=== PATIENT | male | born 1965 | race Hispanic/Latino ===

== ENCOUNTER 2019-05-04 19:47 | Emergency (ER) | payer SELFPAY ==
[2019-05-04] MEDS ORDERED: methylPREDNISolone SODIUM SUC 125 MG/2 ML VIAL IV ONE (19:58)
[2019-05-04] MEDS ORDERED: diphenhydrAMINE HCL 50 MG/ML VIAL IV ONE (20:00)
[2019-05-04] MEDS ORDERED: FAMOTIDINE IV PREMIX 20 MG in PREMIX BAG 1 BAG IVPB ONE (20:01)
[2019-05-04] MEDS ORDERED: SODIUM CHLORIDE 0.9% 1000ML 1,000 ML IVS ONE (20:03)
[2019-05-04] MEDS ORDERED: FAMOTIDINE IV PREMIX 50 ML IVPB ONE (20:04)
[2019-05-04] MEDS ORDERED: SODIUM CHLORIDE 0.9% (FLUSH) 10 ML SYG IV PRN (20:04)
--- NOTE | 2019-05-04 20:18 | ED.PDOC ---
History of Present Illness - General Chief Complaint: Allergic Reaction Stated Complaint: allergic reaction Time Seen by Provider: 05/04/19 19:57 Source: patient, family Exam Limitations: no limitations - History of Present Illness Initial Comments: PT ATE DINNER. JUST AFTER DINNER, PT NOTICED HIS TONGUE STARTED SWELLING. HIS PERCEIVES HIS FACE IS MORE RED THAN USUAL. IN ER HE MENTIONS HE FEELS ITCHY HIS NOTED HIS SPEECH BECAME SLIGHTLY DIFFERENT (NOT CLEAR). PT STATES IT'S D/T TONGUE FEELING SWOLLEN. CONCERNED B/D H/O STROKE 16 MOS AGO. PT DENIES WEAKNESS. NO AMS. NO SOB NO CP. NO NGUYỄN. PT AND STATE SX ARE NOT SAME STROKE LAST YEAR. (LAST YEAR AT STROKE PRESENTATION, PT HAD DYSARTHRIA, APHASIA, MUSCULAR WEAKNESS AND INABILITY TO A MBULATE.) Timing/Duration: 1 hour Severity: moderate Improving Factors: nothing Worsening Factors: nothing Associated Symptoms: rash Allergies/Adverse Reactions: Allergies NO KNOWN ALLERGY Allergy (Verified 11/08/17 22:38) Home Medications: Ambulatory Orders Aspirin [Aspirin Low Strength] 81 mg PO DAILY 05/04/19 Atorvastatin Calcium 40 mg PO DAILY 05/04/19 Lisinopril 20 mg PO 05/04/19 Metformin HCl [Metformin HCl ER] 1,000 mg PO DAILY 05/04/19 Methylprednisolone [Medrol Dose Chet] 4 mg PO DAILY #1 tab 05/04/19 Pioglitazone HCl [Actos] 15 mg PO DAILY 05/04/19 Review of Systems - Review of Systems Constitutional: Denies: malaise, weakness EENTM: Denies: blurred vision, ear pain Respiratory: Denies: cough, short of breath, stridor, wheezing Cardiology: Denies: chest pain, palpitations Gastrointestinal/Abdominal: Denies: abdominal pain, nausea Genitourinary: Denies: dysuria, frequency Musculoskeletal: Denies: back pain, neck pain Skin: States: change in color, rash Neurological: Denies: headache, paresthesia, weakness Endocrine: Denies: unexplained weight gain, unexplained weight loss Hematologic/Lymphatic: Denies: easy bleeding, easy bruising All other Systems: Reviewed and Negative Past Medical History (General) - Patient Medical History Hx Seizures: No Hx Stroke: Yes - risidual right sided weakness from previous stroke Hx Dementia: No Hx Asthma: No Hx of COPD: No Hx Cardiac Disorders: No Hx Congestive Heart Failure: No Hx Pacemaker: No Hx Hypertension: Yes Hx Thyroid Disease: No Hx Diabetes: Yes Hx Gastroesophageal Reflux: No Hx Renal Disease: No Hx Cancer: No Hx of HIV: No Hx Hepatitis C: No Hx MRSA: No Surgical History: no surgical history - Vaccination History Hx Tetanus, Diphtheria Vaccination: No Hx Influenza Vaccination: Yes Hx Pneumococcal Vaccination: No - Social History Hx Tobacco Use: No Hx Alcohol Use: Yes - Occasional Hx Substance Use: No Hx Substance Use Treatment: No Hx Depression: No Hx Physical Abuse: No Hx Emotional Abuse: No Hx Suspected Abuse: No - Triage Comment ED Triage Comment: fRedness to face and chest, toungue feels swollen after eating just [employer] Family Medical History - Family History Mother Family History: Unknown Physical Exam - Physical Exam General Appearance: Alert, Well Groomed Eye Exam: bilateral normal Ears, Nose, Throat: hearing grossly normal, normal ENT inspection, normal pharynx - TONGUE IS NOT UNUSUALLY ENLARGED. AIRWAY PATENT. Neck: non-tender, full range of motion, supple Respiratory: lungs clear, normal breath sounds, no respiratory distress, no accessory muscle use Cardiovascular/Chest: regular rate, rhythm, other - STRONG PULSES. Peripheral Pulses: radial,right: 2+, radial,left: 2+ Gastrointestinal/Abdominal: normal bowel sounds, non tender, soft, no pulsatile mass Back Exam: normal inspection, no CVA tenderness Extremity: normal range of motion, normal inspection Neurologic: automatic bandsaw tender II-XII nml as tested, no motor/sensory deficits, alert, normal mood/affect, oriented x 3 Skin Exam: warm/dry, rash - ERYTHEMATOUS RASH ON ANTERIOR AND POSTERIOR TRUNK. SMALL WHEALS ON BACK. FACE IS PLETHORIC. Lymphatic: no adenopathy Progress - Progress Progress: 05/04/19 20:30 ALLERGIC REACTION WITH MILD TONGUE EDEMA, SPEECH SLIGHTLY AFFECTED BY TONGUE, PRURITIS, TRUNCAL RASH. NO ANAPHYLAXIS (98% RA, NO WHEEZE, NO SOB, HEMODYNAM ICALLY STABLE). TREATED ALLERGIC RXN. WITH H/O 2 STROKES: RECENT STROKE 16 MOS AGO AND 5 YRS AGO, MILD DYSARTHRIA, AND 'S CONCERN FOR STROKE, IT IS APPROPRIATE TO PERFORM HEAD CT FOR COMPLETEN ESS. NIH STROKE SCALE NL OR ARGUABLY 1 OF 42 BY ASSIGNING 1 POINT FOR DYSARTHRIA. 05/04/19 21:[address] SHOWS OLD L-SIDED INFARCT BUT NO NEW FINDINGS. UNRELATED TO TODAY'S ER VISIT, THE CXR SHOWS LLL 1 CM NODULE, POSSIBLY CALCIFIED GRANULOMA BUT RECOMMENDS OUT-PT CT TO FURTHER EVALUATE. I INFORMED THE PT OF THIS AND THAT IT IS IMPORTANT HE F/U WITH HIS REGULAR DR TO GET A CHEST CT TO R/O SERIOUS PATHOLOGY (SUCH CANCER). I TOLD HIM I WILL TYPE THIS ON THE HOME INSTRUCTIONS WELL A REMINDER TO RELAY IT TO HIS PCP. LABS NEG: CBC, CMP, CARDIAC ENZ, COAGS. EKG SINUS W/ PVC X 1. NO ACUTE ST CHANGES. UPON RE-EXAMINATION, PT FEELS HIS TONGUE THICKNESS HAS RESOLVED AND HE, HIS , AND I AGREE HIS SPEECH HAS RETURNED TO NORMAL. RASH COMPLETELY RESOLVED. PRURITIS RESOLVED. ALLERGIC RXN RESOLVED WITH MEDS. RX MEDROL DOSE PACK TO PREVENT ALLERGIC RXN FROM RETURNING. INSTRUCTED BENADRYL PRN ITCHING. I GAVE ER RETURN PRECAUTIONS FOR SOB. Departure - Departure Clinical Impression: Edema of the tongue, Hives Allergic reaction Qualifiers: Encounter type: initial encounter Qualified Code(s): T78.40XA - Allergy, unspecified, initial encounter Disposition: Discharge to Home or Self Care Condition: Good Departure Forms: ED Discharge - Pt. Copy, Patient Portal Self Enrollment Instructions: Anaphylaxis (DC) Diet: resume usual diet Activity: increase activity as tolerated Referrals: Perico Choi MD [Active Staff] - 1-5 Days Prescriptions: Methylprednisolone [Medrol Dose Chet] 4 mg PO DAILY #1 tab Home Medications: Ambulatory Orders Aspirin [Aspirin Low Strength] 81 mg PO DAILY 05/04/19 Atorvastatin Calcium 40 mg PO DAILY 05/04/19 Lisinopril 20 mg PO 05/04/19 Metformin HCl [Metformin HCl ER] 1,000 mg PO DAILY 05/04/19 Methylprednisolone [Medrol Dose Chet] 4 mg PO DAILY #1 tab 05/04/19 Pioglitazone HCl [Actos] 15 mg PO DAILY 05/04/19 Additional Instructions: * The chest x-ray showed a 1 cm nodule. It is important for you to follow-up with your regular doctor for a CT (Cat scan) of the Chest to ensure it is nothing serious. Please take Benadryl 25 mg twice per day for any itching. Return to the ER for any difficulties breathing.
--- NOTE | 2019-05-04 20:39 | RAD ---
EXAM DESCRIPTION: XR Chest,1 View CLINICAL HISTORY: ALLERGIC RXN; TONGUE EDEMA. TECHNIQUE: Single frontal view of the chest is submitted. COMPARISON: None available for comparison FINDINGS: Heart: The cardiothoracic silhouette is within normal limits. Lungs: 1 cm left lower lung zone nodule. No focal consolidation. Mediastinum: Unremarkable Pleura: No appreciable effusion. No pneumothorax. Bones: Multilevel spondylosis. No acute fracture. Upper abdomen: Unremarkable IMPRESSION: 1. No acute disease. 2. 1 cm left lower lung zone nodule which may represent a calcified granuloma. If prior studies exist, direct comparison would be of considerable value. Consider follow-up chest CT. Electronically signed by: Kevin Carey MD 05/04/2019 8:37 PM [employer]
--- NOTE | 2019-05-04 20:43 | CT ---
EXAM DESCRIPTION: Head CLINICAL HISTORY: CHANGES IN SPEECH; H/O STROKE 16 MOS AGO. COMPARISON: None Available. TECHNIQUE: Multiple helical axial tomographic images were obtained of the head without intravenous contrast. This exam was performed according to our departmental dose-optimization program, which includes automated exposure control, adjustment of the mA and/or kV according to patient size and/or use of iterative reconstruction technique. FINDINGS: There is an area of encephalomalacia in the left temporo-occipital region compatible with remote insult. There is no acute intracranial hemorrhage. No mass. No midline shift. No ventriculomegaly. Guo-white matter differentiation is maintained. Mild frontal ethmoidal sinus mucosal thickening is present. Mastoid air cells and middle ear spaces are clear. Orbits and orbital contents are unremarkable. Osseous structures are unremarkable. Surrounding soft tissues are unremarkable. IMPRESSION: No acute intracranial process. Electronically signed by: Wero Whittington MD 05/04/2019 8:41 PM [facility]
[2019-05-04 20:52] VITALS: O2SAT 97
[2019-05-04 22:03] VITALS: BP 157/96; TEMP 97.2
== END 2019-05-04 21:59 | disposition home or self-care (01) ==
LOC: ER 19:47
DX: R60.0 Localized edema (principal); L50.0 Allergic urticaria; T78.40XA Allergy, unspecified, initial encounter; I69.351 Hemiplegia and hemiparesis following cerebral infarction affecting right dominant side; I10 Essential (primary) hypertension; E11.9 Type 2 diabetes mellitus without complications; Z79.82 Long term (current) use of aspirin; Z79.899 Other long term (current) drug therapy; Z79.4 Long term (current) use of insulin
CPT/HCPCS: 36415; 70450; 71045; 80053; 82550; 82553; 84484; 85025; 85610; 85730; 93005; J1200; J2930; J3490; J7030